=== PATIENT | female | born 1995 | race Caucasian/White ===

== ENCOUNTER 2017-09-12 01:40 | Emergency (ER) | payer SELFPAY ==
[2017-09-12] MEDS ORDERED: Naloxone* 0.4 MG/ML 10 ML VIAL IV PRN (02:12)
[2017-09-12] MEDS ORDERED: NS 0.9% 1000 ML* 1,000 ML IV ONE (02:15)
[2017-09-12 02:43] LABS: Alcohol 273 mg/dL (<10)
[2017-09-12 07:33] VITALS: BP 102/61
--- NOTE | 2017-09-21 22:30 | ED ---
Neel Parham Jason, scribed for Marciano Harris MD on 09/12/17 at 0300 . Substance Abuse/Use - HPI Summary HPI Summary: LEVEL 5 CAVEAT DUE TO AMS This patient is a 22 year old F presenting to [facility] accompanied by sister with a chief complaint of alcohol abuse since 1 hour ago today. The patients sister reports that they were both drinking together when they for a while and reconvened. Upon reconvening the patients sister found the pt in an AMS. The patient rates the pain 0/10 in severity. Symptoms aggravated by nothing. Symptoms alleviated by nothing. History unobtainable due to AMS. - History Of Current Complaint Chief Complaint: EDSubstanceAbuse Stated Complaint: ETOH Hx Obtained From: Family/Commercial Coordinator - Sister Hx From Patient Unobtainable Due To: Altered Mental Status Onset/Duration of Drug/ETOH Abuse: Hours Ingestion History: Amount Ingested - 6 OR 7 DRINKS Timing Of Abuse: Binge Use Aggravating Factor(s): Nothing Alleviating Factor(s): Nothing Associated Signs And Symptoms: Altered Mental Status - Allergies/Home Medications Allergies/Adverse Reactions: Allergies Allergy/AdvReac Type Severity Reaction Status Date / Time No Known Allergies Allergy Verified 09/12/17 01:45 PMH/Surg Hx/FS Hx/Imm Hx Previously Healthy: Yes Opthamlomology History: Denies: Hx Legally Blind EENT History: Denies: Hx Deafness - Immunization History Date of Tetanus Vaccine: utd Date of Influenza Vaccine: unk Immunizations Up to Date: Yes Infectious Disease History: No - Family History Known Family History: Negative: Renal Disease, Blood Disorder - Social History Occupation: Student Lives: Dormitory/Roommates Alcohol Use: Weekly Substance Use Type: Reports: None Smoking Status (MU): Never Smoked Tobacco Review of Systems Negative: Fever Neurological: Other - AMS All Other Systems Reviewed And Are Negative: No Physical Exam - Summary Physical Exam Summary: Appearance: Well-appearing, Well-nourished Skin: Warm, Dry, No rash Eyes: Normal, Pupils at 5mm and reactive, EOMI, sclera anicteric ENT: Normal Neck: Supple, nontender Respiratory: Clear to auscultation Cardiovascular: S1, S2, no murmur, no rub, no gallop Abdomen: Soft, nontender, no organomegaly Bowel sounds: Present Musculoskeletal: Normal, Strength/ROM Intact, no edema, pulses symmetrical Neurological: cranial nerves 2-12 wnl, gait not tested, No spontaneous movement to deep pain. No verbal response. Triage Information Reviewed: Yes Vital Signs On Initial Exam: Initial Vitals Temp Pulse Resp BP Pulse Ox 97.3 F 104 16 111/88 98 09/12/17 01:43 09/12/17 01:43 09/12/17 01:43 09/12/17 01:43 09/12/17 01:43 Vital Signs Reviewed: Yes - [place] Coma Scale Coma Scale Total: 7 Diagnostics - Vital Signs Vital Signs Temp Pulse Resp BP Pulse Ox 09/12/17 01:43 97.3 F 104 16 111/88 98 - Laboratory Lab Results: Lab Results 09/12/17 Range/Units 02:21 Beta HCG, Quant < 0.60 mIU/mL Serum Alcohol 273 H (<10) mg/dL Lab Statement: Any lab studies that have been ordered have been reviewed, and results considered in the medical decision making process. Course/Dx - Course Course Of Treatment: This patient is a 22 year old F presenting to [facility] accompanied by sister with a chief complaint of alcohol abuse since 1 hour ago today. The patients sister reports that they were both drinking together when they for a while and reconvened. Upon reconvening the patients sister found the pt in an AMS. The patient rates the pain 0/10 in severity. Symptoms aggravated by nothing. Symptoms alleviated by nothing. History unobtainable due to AMS. Assessment/Plan: In the ED course the patient was given IV fluids and Narcan. - Diagnoses Provider Diagnoses: Alcohol intoxication Discharge - Discharge Plan Condition: Stable Disposition: HOME Patient Education Materials: Alcohol Intoxication (ED) Referrals: [facility] [Outside] No Primary Care Phys,NOPCP [Medical Doctor] - The documentation as recorded by the Neel lenz Jason accurately reflects the service I personally performed and the decisions made by me, Marciano Harris MD.
== END 2017-09-12 07:23 | disposition home or self-care (01) ==
LOC: ED 01:40
DX: F10.129 Alcohol abuse with intoxication, unspecified (principal); Y90.8 Blood alcohol level of 240 mg/100 ml or more
CPT/HCPCS: 36415; 80320; 84702; 99282; G0480